=== PATIENT | female | born 1985 | race African-American/Black ===

== ENCOUNTER 2016-11-15 11:13 | Emergency (ER) | payer OTHER ==
[2016-11-15 11:18] VITALS: BP 145/88; PULSE 98; TEMP 98.1; BMI 26.1
--- NOTE | 2016-11-15 11:49 | PDOC ---
History of Present Illness <Damon Myers - Last Filed: 11/15/16 12:04> - History of Present Illness Initial Comments: 11/15/16 12:11 The patient is a 31 year old female with a past medical hx of seizures who presents to the ED via EMS s/p seizure this morning. The patient notes she was in her rent office when she blacked out. She reports this episode of blacking out lasted approximately 5 minutes. She reports the workers at the office informed her of this episode as she did not recall this 5 minute black out. The workers report she was awake and ambulating during the seizure. She denies LOC. The workers called the ambulance. The patient reports this happens frequently to her, approximately 1 time a month. She reports her last seizure was November 04. The patient reports she feels fine while in the ED and would not have came to the ED if her workers had not called the ambulance. She notes she sees a Neurologist every three months for her seizures and is compliant with her medication. The patient has no complaints at this time. <Gaye Thomson - Last Filed: 11/15/16 12:14> - General Chief Complaint: Altered Mental Status Stated Complaint: ALTERED MENTAL STATUS (black-out) Time Seen by Provider: 11/15/16 11:48 Past History - Past Medical History Seizures: Yes - Immunization History Immunization Up to Date: No - Psycho/Social/Smoking Cessation Hx Anxiety: No Suicidal Ideation: No Smoking History: Current every day smoker Have you smoked in the past 12 months: Yes Number of Cigarettes Smoked Daily: 5 Information on smoking cessation initiated: No Hx Alcohol Use: No Drug/Substance Use Hx: No Substance Use Type: None <Damon Myers - Last Filed: 11/15/16 12:04> <Gaye Thomson - Last Filed: 11/15/16 12:14> - Past Medical History Allergies/Adverse Reactions: Allergies Allergy/AdvReac Type Severity Reaction Status Date / Time No Known Allergies Allergy Verified 11/15/16 11:18 Home Medications: Ambulatory Orders Levetiracetam [Keppra -] 500 mg PO BID 02/08/14 Review of Systems - Review of Systems Able to Perform ROS?: Yes Comments:: 11/15/16 12:11 GENERAL/CONSTITUTIONAL: No fever or chills. No weakness. HEAD, EYES, EARS, NOSE AND THROAT: No change in vision. No ear pain or discharge. No sore throat. CARDIOVASCULAR: No chest pain or shortness of breath. RESPIRATORY: No cough, wheezing, or hemoptysis. GASTROINTESTINAL: No nausea, vomiting, diarrhea or constipation. GENITOURINARY: No dysuria, frequency, or change in urination. MUSCULOSKELETAL: No joint or muscle swelling or pain. No neck or back pain. SKIN: No rash NEUROLOGIC: +Seizure. No headache, vertigo, loss of consciousness, or change in strength/sensation. ENDOCRINE: No increased thirst. No abnormal weight change. HEMATOLOGIC/LYMPHATIC: No anemia, easy bleeding, or history of blood clots. ALLERGIC/IMMUNOLOGIC: No hives or skin allergy <Gaye Thomson - Last Filed: 11/15/16 12:14> *Physical Exam - Vital Signs Last Vital Signs Temp Pulse Resp BP Pulse Ox 98.1 F 98 H 18 145/88 100 11/15/16 11:16 11/15/16 11:16 11/15/16 11:16 11/15/16 11:16 11/15/16 11:16 <Damon Myers - Last Filed: 11/15/16 12:04> - Vital Signs Last Vital Signs Temp Pulse Resp BP Pulse Ox 98.1 F 98 H 18 145/88 100 11/15/16 11:16 11/15/16 11:16 11/15/16 11:16 11/15/16 11:16 11/15/16 11:16 - Physical Exam Comments: 11/15/16 12:12 GENERAL: Awake, alert, and fully oriented, in no acute distress HEAD: No signs of trauma EYES: PERRLA, EOMI, sclera anicteric, conjunctiva clear ENT: Auricles normal inspection, hearing grossly normal, nares patent, oropharynx clear without exudates. Moist mucosa NECK: Normal ROM, supple, no lymphadenopathy, JVD, or masses LUNGS: Breath sounds equal, clear to auscultation bilaterally. No wheezes, and no crackles HEART: Regular rate and rhythm, normal S1 and S2, no murmurs, rubs or gallops ABDOMEN: Soft, nontender, normoactive bowel sounds. No guarding, no rebound. No masses EXTREMITIES: Normal range of motion, no edema. No clubbing or cyanosis. No cords, erythema, or tenderness NEUROLOGICAL: Cranial nerves II through XII grossly intact. Normal speech, normal gait SKIN: Warm, Dry, normal turgor, no rashes or lesions noted. <Gaye Thomson - Last Filed: 11/15/16 12:14> Medical Decision Making - Medical Decision Making 11/15/16 12:12 The patient is a 31 year old female with a past medical hx of seizures who presents to the ED via EMS s/p seizure this morning. The patient reports she has frequent seizures and sees a Neurologist every 3 months. She is compliant with her medication. She notes the workers in the office she was in called EMS during her seizure, she reports she would not have come on her own as she has seizures frequently. The patient denies any pain or complaints at this time. The patient can be discharged. The patient understands and agrees with the plan for discharge, all questions answered. <Gaye Thomson - Last Filed: 11/15/16 12:14> *DC/Admit/Observation/Transfer - Discharge Dispostion Admit: No - Attestations Physician Attestion: 11/15/16 11:49 I, Dr. Damon Myers, attest that this document has been prepared under my direction and personally reviewed by me in its entirety. I further attest, that it accurately reflects all work, treatment, procedures and medical decision -making performed by me. <Damon Myers - Last Filed: 11/15/16 12:04> - Attestations Scribe Attestion: 11/15/16 12:11 Documentation prepared by Gaye Thomson, acting as emergency medical technician for Damon Myers MD/DO. <Gaye Thomson - Last Filed: 11/15/16 12:14> Diagnosis at time of Disposition: Absence seizure disorder Qualifiers: Intractability: not intractable Status epilepticus: without status epilepticus Qualified Code(s): G40.A09 - Absence epileptic syndrome, not intractable, without status epilepticus - Discharge Dispostion Disposition: HOME Condition at time of disposition: Good - Patient Instructions Printed Discharge Instructions: Seizure Disorder -- Adult Additional Instructions: Atia- Sorry that you are going through this. Please come to us any time you need help. Follow up with your Neurologist. I wish you the best- Dr. Damon Myers
== END 2016-11-15 12:21 | disposition home or self-care (01) ==
LOC: JER 11:13
DX: G40.A09 Absence epileptic syndrome, not intractable, without status epilepticus (principal)
CPT/HCPCS: 99282-25

== ENCOUNTER 2019-10-04 08:21 | Emergency (ER) | payer OTHER ==
[2019-10-04 08:40] VITALS: BP 120/80; PULSE 92; TEMP 97.9; BMI 26.2
--- NOTE | 2019-10-04 08:41 | PDOC ---
History of Present Illness - General Chief Complaint: Seizure Stated Complaint: SEIZURE Time Seen by Provider: 10/04/19 08:37 History Source: Patient Exam Limitations: No Limitations - History of Present Illness Initial Comments: 10/04/19 08:38 33-year-old female history of seizure disorder here today status post witnessed seizure was walking with grocery bags when by the bystanders that she had a self -limited seizure. Patient was brought by ambulance states that currently she is awake alert and at her baseline she does have seizures however does not remember her seizure medication denies drug or alcohol use denies any trauma at this point patient refuses to be further evaluated and would like to go home to her mother's house states she is going to walk and her mom lives right around the corner Past History - Past Medical History Allergies/Adverse Reactions: Allergies Allergy/AdvReac Type Severity Reaction Status Date / Time No Known Allergies Allergy Verified 11/15/16 11:18 Home Medications: Ambulatory Orders levETIRAcetam [Keppra -] 500 mg PO BID 02/08/14 COPD: No Seizures: Yes - Immunization History Immunization Up to Date: No - Psycho Social/Smoking Cessation Hx Smoking History: Unknown if ever smoked Have you smoked in the past 12 months: No Number of Cigarettes Smoked Daily: 20 Hx Alcohol Use: No Drug/Substance Use Hx: No Substance Use Type: None *Physical Exam - Vital Signs Last Vital Signs Temp Pulse Resp BP Pulse Ox 97.9 F 92 H 16 120/80 100 10/04/19 08:25 10/04/19 08:25 10/04/19 08:25 10/04/19 08:25 10/04/19 08:25 - Physical Exam 10/04/19 08:38 Patient is awake alert no acute distress is alert and oriented x3 moving all 4 extremities gait is stable and steady head appears grossly atraumatic Patient refusing further examination Medical Decision Making - Medical Decision Making 10/04/19 08:39 33-year-old female history of seizure disorder status post witnessed seizure refusing any further work-up or examination would like to go explained the placement risk and benefits encouraged to return for recurrent seizure or any concerns or headache would like to go by walking demonstrates good capacity to understand risk and benefit and walked out of the department Discharge - Discharge Information Problems reviewed: Yes Clinical Impression/Diagnosis: Seizure disorder Disposition: ELOPED - Follow up/Referral - Patient Discharge Instructions - Post Discharge Activity
== END 2019-10-04 08:40 | disposition left against medical advice (07) ==
LOC: JER 08:21
DX: G40.909 Epilepsy, unspecified, not intractable, without status epilepticus (principal)
CPT/HCPCS: 99283-25

== ENCOUNTER 2021-12-19 00:07 | Emergency (ER) | payer OTHER ==
[2021-12-19 00:14] VITALS: BP 139/93; PULSE 94; TEMP 98.8; BMI 28.3
[2021-12-19] MEDS ORDERED: levETIRAcetam 500 MG/5 ML INJECTION VIAL IVPB ONE ×2 (00:15→00:50)
[2021-12-19 00:56] LABS: BASO % 0.5 % (0-2.0); EOS % 0.1 % (0-4.5); HEMATOCRIT 45.3 % (32.4-45.2); HEMOGLOBIN 15.6 GM/dL (10.7-15.3); LYMPH % 6.7 % (8-40); MCH 33.2 pg (25.7-33.7); MCHC 34.5 g/dl (32.0-36.0); MEAN CELL VOLUME 96.4 fl (80-96); MEAN PLT VOLUME 7.3 fl (7.5-11.1); MONO % 5.4 % (3.8-10.2); NEUT % 87.3 % (42.8-82.8); PLATELET COUNT 256 10^3/uL (134-434); RDW 13.4 % (11.6-15.6)
[2021-12-19 01:18] LABS: ALBUMIN 4.2 g/dl (3.4-5.0); CALCIUM 9.5 mg/dL (8.5-10.1)
[2021-12-19] MEDS ORDERED: ACETAMINOPHEN 1000 MG/100 ML BAG IVPB ONE (01:18)
[2021-12-19 01:19] LABS: BLOOD UREA NITROGEN 8.7 mg/dL (7-18)
[2021-12-19 01:22] LABS: CREATININE 0.9 mg/dL (0.55-1.3)
[2021-12-19 01:23] LABS: BILIRUBIN,TOTAL 0.5 mg/dL (0.2-1); TOT PROT 8.6 g/dl (6.4-8.2)
[2021-12-19] MEDS ORDERED: ACETAMINOPHEN INJECTION 100 ML IVPB ONE (01:47)
[2021-12-19] MEDS ORDERED: SODIUM CHLORIDE 0.9% 500 ML INFUS.BAG IV ONE (04:02)
== END 2021-12-19 06:24 | disposition home or self-care (01) ==
LOC: JER 00:07
PROC: 3E033GC Introduction of Other Therapeutic Substance into Peripheral Vein, Percutaneous Approach (ICD-10-PCS; principal; 2021-12-19)
DX: R56.9 Unspecified convulsions (principal)
CPT/HCPCS: 36415; 80053; 80177; 84703; 85025; 90471; 99284-25